=== PATIENT | male | born 2000 | race Caucasian/White ===

== ENCOUNTER 2025-07-27 01:13 | Emergency (ER) | payer OTHER ==
[~2025-07-27] VITALS: Ht 175.3 cm; Wt 70.0 kg
[2025-07-27 01:19] VITALS: O2SAT 99
[2025-07-27] MEDS ORDERED: SENN-362 MT (05:14)
[2025-07-27] MEDS ORDERED: POLY17PO3 MT (05:14)
[2025-07-27 06:01] VITALS: BP 110/74; PULSE 70; RESP 16; TEMP 36.8; O2SAT 100
== END 2025-07-27 06:02 | disposition home or self-care (01) ==
LOC: ER 01:32
DX: K59.00 Constipation, unspecified (principal)
CPT/HCPCS: 74176; 99284